=== PATIENT | female | born 1995 | race African-American/Black ===

== ENCOUNTER 2024-02-28 23:54 | Emergency (ER) | payer BC, SELFPAY ==
[2024-02-28 23:56] VITALS: BP 100/65; BMI 53.9
[2024-02-29] VITALS: BP 100/65
[2024-02-29 00:25] LABS: HCG, Serum Qualitative Screen Negative
[2024-02-29 00:28] LABS: ALT (SGPT) 13 U/L (0-35); AST (SGOT) 24 U/L (14-36); Albumin 4.4 g/dl (3.5-5.0); Alkaline Phosphatase 55 U/L (38-126); Blood Urea Nitrogen 13 mg/dl (7-17); Calcium 9.8 mg/dl (8.4-10.2); Carbon Dioxide 21 mmol/L (22-30); Chloride 108 mmol/L (98-107); Estimated Creatinine Clearance 111 ml/min; Glucose 95 mg/dl (70-99); Potassium 3.5 mmol/L (3.5-5.1); Sodium 138 mmol/L (135-145); Total Bilirubin 0.8 mg/dl (0.2-1.3); Total Protein 7.4 g/dl (6.3-8.2); eGFR > 60.00
--- NOTE | 2024-02-29 00:31 | ED.GENMED ---
History of Present Illness
General
Chief Complaint: Chest Pain
Source: patient
Time Seen by Provider: 02/29/24 00:16
History of Present Illness
History of Present Illness:
29-year-old female presents to the emergency room via ambulance due to having burning in her chest, shortness of breath. Patient states symptoms began around 10:00. She had been doing some cleaning in the house prior. Patient states she was
running out of chlorine bleach so she added some other household hand glove cleaner to the bucket. Shortly thereafter she began noticing a noxious fume. She also experienced some burning in her eyes. Patient has no known medical problems. She does take
Wegovy for weight loss. Currently her symptoms are improved.
Phy Exam
Physical Exam
Physical Exam:
General: Awake, Alert, Oriented X3. No acute distress.
Vitals: unremarkable
Head: Atraumatic
Eyes: Pupils equal, EOMI
Throat: Airway intact, no exudates
Neck: Trachea midline
Lungs: Clear and equal b/l
Heart: Regular rate, no murmurs
Abd: Soft, Nontender, No pulsatile mass
Neuro: Nonfocal
Skin: Warm, dry, no rash
Extremities: pulses equal b/l, no edema
Scores
Heart Score for Chest Pain Patients
STEMI patient?: Not applicable
Course
Orders/Labs/Results
Orders:
Orders
02/28/24 23:55
Electrocardiogram (*1) Urgent
Reason for Study: Chest Pain
Cardiac Monitoring- Treatment ONCE
EKG- Treatment ONCE
IV Insert/Care/Rem.- Treatment PRN
Complete Blood Count/With Diff Urgent
Comprehensive Metabolic Panel Urgent
HCG, Serum Qualitative Screen Urgent
Troponin I Urgent
Test Result ONCE
Pulse Ox/spot Check [RESP] Urgent
Quantity: 1
Special Instructions: ON ROOM AIR
Abnormal Lab Results
02/29/24
00:01
RBC 3.79 L 10^6/uL
(4.20-5.40)
Hct 34.0 L %
(37.0-47.0)
MCH 31.7 H pg
(27.0-31.0)
MPV 11.1 H fL
(7.4-10.4)
Abs Immat Gran (auto) 0.1 H 10^3/uL
(0-0.05)
Immature Gran % 0.7 H %
(0-0.5)
Chloride 108 H mmol/L
(98-107)
Carbon Dioxide 21 L mmol/L
(22-30)
02/29/24 00:01
02/29/24 00:01
Vital Signs
Initial and Last Documented VS:
Initial Vital Signs
Temp Pulse Resp BP Pulse Ox
97.1 F 77 18 100/65 98
02/28/24 23:56 02/28/24 23:56 02/28/24 23:56 02/28/24 23:56 02/28/24 23:56
Last Documented Vital Signs
Temp Pulse Resp BP Pulse Ox
97.1 F 64 17 114/67 92
02/28/24 23:56 02/29/24 01:00 02/29/24 01:00 02/29/24 01:00 02/29/24 00:30
MDM/Problems Addressed
Differential Diagnosis Includes:
Respiratory irritation from noxious gas, chest wall pain
MDM/Problems Addressed:
Patient presents for evaluation of shortness of breath and burning sensation in her chest. Patient likely made chlorine gas by mixing bleach and other cleaning products. Patient is clinically stable. She is not hypoxic. No interventions
necessary. Patient declines chest x-ray.
*Pulse Oximetry
Patient hypoxic: no
*EKG
Interpreted by ED Provider?: Yes
Interpretation: normal
Heart Rate: 69
Rate: normal
Rhythm: sinus
[place]: normal axis
Interval: normal interval
QRS Pattern: normal QRS
Ischemia: no ischemia
*Soda Flaker Interpretation
Rate: normal
Interpretation: normal
Heart Rate: 69
Rhythm: sinus
*Critical Care Note
Total Time (30-74mins, 75-104mins- exclusive of procedures): Not Applicable
ED Attending Note
-
Portions of this chart may have been created with voice recognition software.� Occasional wrong word or��sound alike� substitutions may have occurred due to the inherent limitations of voice recognition software.
Discharge Plan
Departure
Patient Disposition: Home (Routine Discharge)
Date of Disposition: 02/29/24
Time of Disposition: 01:07
Patient with high blood pressure during this ER visit?: No
Condition: Good
Discharge Problem:
Toxic effect of fumes, Chest pain
Instructions: Chest Pain PCP Follow Up
Referrals:
Don Baxter, DO [Family Provider] -
Interventions
Interventions:
*Risk Screen - Suicide Last Done: 02/28/24 23:56
*General Assessment Last Done: 02/28/24 23:56
*Neglect/Abuse Screening Last Done: 02/28/24 23:56
ED- Fall Risk Assessment Last Done: 02/29/24 00:09
*ED COVID-19 Vaccine History Last Done: 02/28/24 23:56
ED- Cardiac Assessment Last Done: 02/29/24 00:09
Discharge Date and Time
Print Language: ESTONIAN
[2024-02-29 00:40] LABS: Troponin I < 0.012 ng/ml
[2024-02-29 00:47] LABS: % Basophils 0.4 % (0-2); % Eosinophils 0.6 % (0-6); % Immature Granulocytes 0.7 % (0-0.5); % Monocytes 7.6 % (1.7-9.3); % Neutrophils 49.7 % (42.2-75.2); Absolute Immature Granulocytes 0.1 10^3/uL (0-0.05); Absolute Lymphocytes 2.9 10^3/uL (1.2-3.4); Absolute Monocytes 0.5 10^3/uL (0.1-0.6); Absolute Neutrophils 3.5 10^3/uL (1.4-6.5); Mean Corp Hgb Conc. 35.3 g/dL (33.0-37.0); Mean Corpuscular Hgb 31.7 pg (27.0-31.0); Mean Corpuscular Volume 89.7 fL (81.0-99.0); Mean Platelet Volume 11.1 fL (7.4-10.4); Nucleated Red Blood Cells % 0 %; Platelet Count 205 10^3/uL (130-400); Red Blood Cell Count 3.79 10^6/uL (4.20-5.40); Red Cell Dist. Width 13.2 % (11.5-14.5); White Blood Cell Count 7.1 10^3/uL (4.8-10.8)
[2024-02-29 01:00] VITALS: BP 114/67
== END 2024-02-29 01:25 | disposition home or self-care (01) ==
LOC: EMR 23:54
PROVIDERS: EMERGENCY PHYSICIAN Emergency Medicine; FAMILY PHYSICIAN Internal Medicine
DX: R07.89 Other chest pain (principal); T65.91XA Toxic effect of unspecified substance, accidental (unintentional), initial encounter; Y92.9 Unspecified place or not applicable; R06.02 Shortness of breath
CPT/HCPCS: 99283; 80053; 84484; 84703; 85025; 93005